=== PATIENT | male | born 1985 | race Caucasian/White ===

== ENCOUNTER 2019-06-02 13:24 | Emergency (ER) | payer OTHER ==
[~2019-06-02] VITALS: Ht 180.3 cm; Wt 80.0 kg
[~2019-06-02 13:24] MED LIST: ANTIBIOTIC PO
[2019-06-02 13:28] VITALS: Ht 180.3 cm; Wt 80.0 kg
--- NOTE | 2019-06-02 13:55 | ERD ---
ER Documentation Chief Complaint Chief Complaint medical clearance for booking c/o left foot pain and infection. HPI Patient brought in by police for medical clearance after being arrested. Patient has external fixation of his left lower extremity. Pending outpatient Ortho follow-up. Was diagnosed with an infection in the extremity yesterday at an outside hospital. Started on unknown antibiotic is taken 1 dose this morning but does not know the name of it. Denies any fevers, chills, symptoms. Endorses some discharge from the left lower extremity and the right lower extremity wounds. ROS All systems reviewed and are negative except as per history of present illness. Medications Home Meds Reported Medications [Antibiotic] No Conflict Check, MG PO DIRECTED PATIENT START TAKING ANTIBIOTICS 06/01/19, BUT DON'T KNOW THE NAME. 06/02/19 Allergies Allergies: Coded Allergies: No Known Allergy (Unverified , 06/02/19) PMhx/Soc Medical and Surgical Hx: pt denies Medical Hx ( wound infection), pt denies Surgical Hx (External fixation left lower extremity) Hx Alcohol Use: No Hx Substance Use: No Hx Tobacco Use: No Smoking Status: Never smoker Physical Exam Vitals Vital Signs Date Temp Pulse Resp B/P (MAP) Pulse Ox O2 O2 Flow FiO2 Time Delivery Rate 06/02/19 84 17 124/77 98 Room Air 19:18 (93) 06/02/19 84 18 139/81 99 Room Air 18:09 (100) 06/02/19 98.1 82 18 145/80 99 Room Air 16:35 (101) 06/02/19 98 18 137/90 97 Room Air 14:31 (106) 06/02/19 98.1 102 18 135/82 98 13:28 (99) Physical Exam Const: No acute distress Head: Atraumatic Eyes: Normal Conjunctiva ENT: Normal External Ears, Nose and Mouth. Neck: Full range of motion. No meningismus. Resp: Clear to auscultation bilaterally Cardio: Regular rate and rhythm, no murmurs Abd: Soft, non tender, non distended. Normal bowel sounds Skin: No petechiae or rashes Back: No midline or flank tenderness Lower Extremity -left]: Skin: No laceration, or evidence of external trauma external fixation. Proximal to ankle there is area of superficial wound with pus drainage not at area of pin. All pin entry sites are clean dry intact Compartments: Soft Motor: Full active range of motion hip/knee. Ankle and foot limited secondary to fixation Sensation: Intact to light touch FDWS/dorsal lateral toe s/MF/LF/Plantar calcaneal surface Bones: Nontender pelvis/knee/proximal tibia/ malleoli/foot Joints: No effusion or laxity Pulses/Perfusion: 2+ DP, Capillary refill < 2 seconds Nailbeds: Intact without significant subungal hematoma Lower Extremity -right]: Skin: No laceration, or evidence of external trauma erythema and induration around the heel no drainage. Compartments: Soft Motor: Full active range of motion hip/knee/ankle/foot Sensation: Intact to light touch FDWS/dorsal lateral toes/MF/LF/Plantar calcaneal surface Bones: Nontender pelvis/knee/proximal tibia/ malleoli/foot Joints: No effusion or laxity Pulses/Perfusion: 2+ DP, Capillary refill < 2 seconds Nailbeds: Intact without significant subungal hematoma Neur: Awake and alert Psych: Normal Mood and Affect Result Diagram: 06/02/19 1354 06/02/19 1354 Results 24 hrs Laboratory Tests Test 06/02/19 13:54 White Blood Count 12.6 10^3/ul Red Blood Count 4.82 10^6/ul Hemoglobin 13.5 g/dl Hematocrit 40.8 % Mean Corpuscular Volume 84.6 fl Mean Corpuscular Hemoglobin 28.0 pg Mean Corpuscular Hemoglobin Concent 33.1 g/dl Red Cell Distribution Width 13.4 % Platelet Count 449 10^3/UL Mean Platelet Volume 9.4 fl Immature Granulocytes % 0.200 % Neutrophils % 76.5 % Lymphocytes % 14.1 % Monocytes % 7.9 % Eosinophils % 1.0 % Basophils % 0.3 % Nucleated Red Blood Cells % 0.0 /100WBC Immature Granulocytes # 0.030 10^3/ul Neutrophils # 9.6 10^3/ul Lymphocytes # 1.8 10^3/ul Monocytes # 1.0 10^3/ul Eosinophils # 0.1 10^3/ul Basophils # 0.0 10^3/ul Nucleated Red Blood Cells # 0.0 10^3/ul Sodium Level 142 mmol/L Potassium Level 3.7 mmol/L Chloride Level 107 mmol/L Carbon Dioxide Level 26 mmol/L Anion Gap 9 Blood Urea Nitrogen 18 mg/dl Creatinine 1.27 mg/dl Est Glomerular Filtrat Rate mL/min > 60 mL/min Glucose Level 110 mg/dl Calcium Level 9.2 mg/dl Current Medications Medications Dose Sig/Gregg Start Time Status Last (Trade) Ordered Route PRN Stop Time Admin Dose Reason Admin Vancomycin 250 ml @ ONCE STAT 06/02/19 DC 06/02/19 HCl 125 mls/hr IVPB 14:13 15:18 06/02/19 16:12 Ceftriaxone 50 ml @ ONCE STAT 06/02/19 DC 06/02/19 Sodium 100 mls/hr IVPB 14:13 14:27 06/02/19 14:42 Sodium 2,400 ml BOLUS OVER 2 06/02/19 DC 06/02/19 Chloride HOURS STAT 15:37 15:45 (NS) IV* 06/02/19 15:38 Ondansetron 4 mg ONCE STAT 06/02/19 DC 06/02/19 HCl (Zofran IV 16:31 16:40 Inj) 06/02/19 16:34 Ondansetron 4 mg STK-MED 06/02/19 DC HCl (Zofran ONCE .ROUTE 16:33 Inj) 06/02/19 16:34 Procedures/MDM Patient here for medical clearance after being arrested. Patient does have a left lower extremity ex-fix states he was done yesterday at an outside hospital. The area is edematous and erythematous with discharge concerning for infection. Patient is also tachycardic. Afebrile and normotensive. Will give fluids and IV antibiotics. Will admit to medicine with surgery consult Spoke with hospitalist team here and Ortho Dr. Hutton both stating patient is to be transferred back to outside hospital will attempt transfer. 1926 spoke with [facility] senior care unit accepted patient for admission SCARLETT ROCHA MD Jun 02, 2019 13:55
[2019-06-02] MEDS ORDERED: CEFTRIAXONE 1 GM/50 ML (PMX) 50 ML IVPB STA (14:13)
[2019-06-02] MEDS ORDERED: VANCOMYCIN 1 GM (PMX) 250 ML IVPB STA (14:13)
[2019-06-02] MEDS ORDERED: SODIUM CHLORIDE 0.9% 1L BAG IV* STA (15:37)
[2019-06-02] MEDS ORDERED: ONDANSETRON 4 MG INJ IV STA (16:31)
[2019-06-02] MEDS ORDERED: ONDANSETRON 4 MG INJ ONE (16:33)
[2019-06-03] MEDS ORDERED: KETOROLAC 30 MG INJ IV STA (13:11)
[2019-06-03 13:39] VITALS: BP 131/90; PULSE 83; RESP 18
[2019-06-03] MEDS ORDERED: VANCOMYCIN IV PER PHARMACY XX SCH (14:00)
[2019-06-03] MEDS ORDERED: CEFTRIAXONE 1 GM INJ IM ONE (14:00)
== END 2019-06-03 14:16 | disposition short-term general hospital (02) ==
LOC: E/R 13:24
DX: M79.672 Pain in left foot (principal)
CPT/HCPCS: 73610; 73630; 80048; 85025; 96365; 96375; J0696; J2405; J3370; J7030; Z7502